=== PATIENT | male | born 1930 | race Caucasian/White ===

== ENCOUNTER 2016-09-13 10:12 | Inpatient (IN) | payer OTHER, BC ==
[~2016-09-13] VITALS: Ht 170.2 cm; Wt 111.3 kg
[2016-09-13 10:56] LABS: EOSINOPHIL (%) 0.9 % (0-5); EOSINOPHIL COUNT 0.1 K/uL (0-0.3); HEMATOCRIT 25.8 % (38.0-50.0); IMMATURE GRANULOCYTE (%) 1.9 % (0.0-0.7); IMMATURE GRANULOCYTE COUNT 2.2 K/uL; LYMPHOCYTE COUNT 0.9 K/uL (1.0-2.8); MCH 32.2 PG (29.0-34.0); MCHC 32.9 G/DL (30.0-36.0); MCV 97.7 FL (86-99); MEAN PLAT.VOLUME 11.4 uM^3 (9.0-12.4); MONOCYTE (%) 4.2 % (3-12); MONOCYTE COUNT 0.5 K/uL (0-0.8); NEUTROPHIL (%) 85.6 % (45-76); NEUTROPHIL COUNT 10.1 K/uL (1.8-6.4); PLATELET COUNT 113 K/uL (156-360); RBC DIS.WIDTH-CV 15.1 % (11.8-14.6); RBC DIS.WIDTH-SD 50.6 % (39-53); RED BLOOD COUNT 2.64 M/uL (4.00-5.50); WHITE BLOOD COUNT 11.8 K/uL (4.1-10.2)
[2016-09-13 11:07] LABS: AMYLASE 50 IU/L (1-118); CHLORIDE 108 mEq/L (99-109); POTASSIUM 3.9 mEq/L (3.7-5.4); SODIUM 139 mEq/L (136-147)
[2016-09-13 11:08] LABS: GLUCOSE 178 mg/dL (70-99)
[2016-09-13 11:10] LABS: ANION GAP 13 MEQ/L (2-14)
[2016-09-13 11:12] LABS: SERUM ETHYL ALCOHOL < 10 mg/dL
[2016-09-13 11:13] LABS: UREA NITROGEN (BUN) 25 mg/dL (9-23)
[2016-09-13 11:15] LABS: LIPASE 17 U/L (1.0-51.0)
[2016-09-13 11:17] LABS: GFR ESTIMATE (CALCULATED) 41 mL/min/
[2016-09-13] MEDS ORDERED: AMLODIPINE BESY10 MG PO (14:50)
[2016-09-13] MEDS ORDERED: LIPITOR20 MG PO (14:50)
[2016-09-13] MEDS ORDERED: COREG25 M1 PO (14:51)
[2016-09-13] MEDS ORDERED: GLUCOTROL5 MG PO (14:52)
[2016-09-13] MEDS ORDERED: LASIX40 MG PO (14:52)
[2016-09-13] MEDS ORDERED: ZESTRIL20 MG PO (14:54)
[2016-09-13] MEDS ORDERED: APRESOLINE50 MG PO (14:54)
[2016-09-13] MEDS ORDERED: ASPIRIN81 M2 PO (14:55)
[2016-09-13] MEDS ORDERED: KLOR-CON 1010 ME1 PO (14:55)
[2016-09-13] MEDS ORDERED: FEOSOL325 MG PO (14:56)
[2016-09-13] MEDS ORDERED: INDOMETHACIN50 MG PO (14:57)
[2016-09-13] MEDS ORDERED: VITAMIN D2000 UNIT PO (14:57)
[2016-09-13] MEDS ORDERED: NIACIN500 M4 PO (15:02)
[2016-09-13] MEDS ORDERED: BACTRIM,SEPT1 TABLET PO (15:03)
[2016-09-13 16:01] LABS: ADD MIUA? YES; BILIRUBIN NEGATIVE; BLOOD MODERATE; COLOR YELLOW ((YELLOW)); GLUCOSE (STRIP) NEGATIVE; KETONES NEGATIVE; LEUKOCYTES NEGATIVE; NITRITE NEGATIVE; PH, URINE 5.5 (5-8); PROTEIN (STRIP) 30; SPECIFIC GRAVITY 1.045 (1.000-1.030); UROBILINOGEN 0.2 MG/DL (0.2-1.0)
[2016-09-13 16:05] VITALS: BP 100/38
[2016-09-13 16:12] LABS: ADD MEDTOX COMMENT Y; AMPHETAMINE NEGATIVE (500 ng/mL); BARBITURATES NEGATIVE (200 ng/mL); BENZODIAZEPINES PRESUMPTIVE POSITIVE (150 ng/mL); COCAINE NEGATIVE (150 ng/mL); INTERNAL CONTROLS VALID? YES; METHADONE NEGATIVE (200 ng/mL); METHAMPHETAMINE NEGATIVE (500 ng/mL); OPIATES (MORPHINE) NEGATIVE (100 ng/mL); OXYCODONE NEGATIVE (100 ng/mL); PHENCYCLIDINE NEGATIVE (25 ng/mL); PROPOXYPHENE NEGATIVE (300 ng/mL); THC CANNABINOIDS NEGATIVE (50 ng/mL); TRICYCLIC ANTIDEPRESSANTS NEGATIVE (300 ng/mL)
[2016-09-13 16:30] VITALS: BP 100/38
[2016-09-13 16:40] LABS: CASTS PRESENT /LPF; HYALINE CASTS 0-5 /LPF; WHITE BLOOD CELLS 0-5 /HPF (0-5)
[2016-09-13 16:41] LABS: BACTERIA 1+; CRYSTALS NONE SEEN; EPITHELIAL CELLS RARE; MUCUS 1+; UCUL ADDED? NO
[2016-09-13 16:43] LABS: BENZODIAZEPINES QUANT VALUE 0 NG/ML
[2016-09-13 16:44] LABS: BENZODIAZEPINES, URINE SCREEN Negative (200 ng/mL)
[2016-09-13 16:56] LABS: Estimated Average Glucose 146 mg/dL (70-123); HEMOGLOBIN A1c (GLYCOHEMOGLOB) 6.7 % HGB (Below 5.7)
[2016-09-13 17:00] VITALS: BP 96/37
[2016-09-13 18:21] LABS: METH RESISTANT S AUREUS PCR POSITIVE (NEGATIVE)
[2016-09-13 18:27] LABS: PROBE CHECK PASS
[2016-09-13 21:56] LABS: HEMATOCRIT 24.5 % (38.0-50.0); MCV 93.5 FL (86-99)
[2016-09-13 22:35] VITALS: BP 102/39
[2016-09-13 23:00] VITALS: BP 83/42
[2016-09-13 23:30] VITALS: BP 85/30
[2016-09-14] VITALS (40 sets, daily range): BP systolic 0–146; BP diastolic 0–61
[2016-09-14 06:03] LABS: ALKALINE PHOSPHATASE 42 IU/L (3-129); ANION GAP 6 MEQ/L (2-14); CHLORIDE 112 MEQ/L (99-109); GLUCOSE 150 mg/dL (70-99); MAGNESIUM 1.9 mg/dl (1.3-2.7); SAMPLE HEMOLYSIS CHECK 0; SAMPLE ICTERIC CHECK 0; SAMPLE LIPEMIA CHECK 0; SODIUM 140 MEQ/L (136-147); TOTAL BILIRUBIN 0.8 MG/DL (0.0-1.0)
[2016-09-14 06:07] LABS: GFR ESTIMATE (CALCULATED) 29 mL/min/; POTASSIUM 4.7 MEQ/L (3.7-5.4); UREA NITROGEN (BUN) 39 mg/dL (9-23)
[2016-09-14 06:24] LABS: HEMATOCRIT 17.6 % (38.0-50.0); MCH 31.1 PG (29.0-34.0); MCHC 34.1 G/DL (30.0-36.0); MCV 91.5 FL (86-99); MEAN PLAT.VOLUME 11.6 uM^3 (9.0-12.4); RBC DIS.WIDTH-CV 17.6 % (11.8-14.6); RBC DIS.WIDTH-SD 58.1 % (39-53); WHITE BLOOD COUNT 11.1 K/uL (4.1-10.2)
[2016-09-14 06:25] LABS: PLATELET COUNT 61 K/uL (156-360); RED BLOOD COUNT 1.93 M/uL (4.00-5.50)
[2016-09-14 11:51] LABS: POINT-OF-CARE METER ID UU14174217; POINT-OF-CARE USER ID 606021424
[2016-09-14 15:08] LABS: POINT-OF-CARE METER ID UU14174217
[2016-09-14 16:09] LABS: MCH 30.5 PG (29.0-34.0); MCHC 34.4 G/DL (30.0-36.0); MCV 88.7 FL (86-99); MEAN PLAT.VOLUME 11.7 uM^3 (9.0-12.4); PLATELET COUNT 54 K/uL (156-360); RBC DIS.WIDTH-CV 16.9 % (11.8-14.6); RBC DIS.WIDTH-SD 54.8 % (39-53); RED BLOOD COUNT 2.82 M/uL (4.00-5.50); WHITE BLOOD COUNT 13.3 K/uL (4.1-10.2)
[2016-09-14 16:36] LABS: ANISOCYTOSIS 1+; EOSINOPHIL (%) 0.3 % (0-5); IMMATURE GRANULOCYTE (%) 0.4 % (0.0-0.7); IMMATURE GRANULOCYTE COUNT 0.1 K/uL; LYMPHOCYTE COUNT 1.3 K/uL (1.0-2.8); MICROCYTOSIS 1+; MONOCYTE (%) 8.1 % (3-12); MONOCYTE COUNT 1.1 K/uL (0-0.8); NEUTROPHIL COUNT 10.8 K/uL (1.8-6.4); USER ID VLB
[2016-09-14 21:54] LABS: POINT-OF-CARE METER ID UU14174217; POINT-OF-CARE USER ID RADDRS44
[2016-09-15] VITALS (16 sets, daily range): BP systolic 104–156; BP diastolic 48–94
[2016-09-15 06:29] LABS: HEMATOCRIT 22.2 % (38.0-50.0); MCH 30.4 PG (29.0-34.0); MCHC 34.7 G/DL (30.0-36.0); MCV 87.7 FL (86-99); MEAN PLAT.VOLUME 11.5 uM^3 (9.0-12.4); PLATELET COUNT 51 K/uL (156-360); RBC DIS.WIDTH-CV 17.6 % (11.8-14.6); RBC DIS.WIDTH-SD 55.5 % (39-53); RED BLOOD COUNT 2.53 M/uL (4.00-5.50); WHITE BLOOD COUNT 11.6 K/uL (4.1-10.2)
[2016-09-15 07:07] LABS: ANION GAP 6 MEQ/L (2-14); CHLORIDE 109 MEQ/L (99-109); GLUCOSE 169 mg/dL (70-99); MAGNESIUM 1.9 mg/dl (1.3-2.7); POTASSIUM 3.9 MEQ/L (3.7-5.4); SAMPLE HEMOLYSIS CHECK 0; SAMPLE ICTERIC CHECK 0; SAMPLE LIPEMIA CHECK 0; SODIUM 137 MEQ/L (136-147); UREA NITROGEN (BUN) 33 mg/dL (9-23)
[2016-09-15 07:09] LABS: GFR ESTIMATE (CALCULATED) 44 mL/min/; VANCOMYCIN, TROUGH 10.1 MCG/ML (10-20)
[2016-09-15 11:45] LABS: POINT-OF-CARE METER ID UU14174217
[2016-09-15 15:11] LABS: HEMATOCRIT 22.6 % (38.0-50.0); MCV 87.9 FL (86-99)
[2016-09-15 23:34] LABS: POINT-OF-CARE USER ID RADDRS44
[2016-09-16] VITALS (17 sets, daily range): BP systolic 115–154; BP diastolic 47–69
[2016-09-16 06:08] LABS: HEMATOCRIT 19.9 % (38.0-50.0); MCH 30.8 PG (29.0-34.0); MCHC 35.2 G/DL (30.0-36.0); MCV 87.7 FL (86-99); RBC DIS.WIDTH-CV 16.6 % (11.8-14.6); RBC DIS.WIDTH-SD 53.3 % (39-53); RED BLOOD COUNT 2.27 M/uL (4.00-5.50); WHITE BLOOD COUNT 8.3 K/uL (4.1-10.2)
[2016-09-16 06:29] LABS: ANION GAP 6 MEQ/L (2-14); CHLORIDE 105 MEQ/L (99-109); GFR ESTIMATE (CALCULATED) > 59 mL/min/; GLUCOSE 162 mg/dL (70-99); POTASSIUM 3.2 MEQ/L (3.7-5.4); SAMPLE HEMOLYSIS CHECK 0; SAMPLE ICTERIC CHECK 0; SAMPLE LIPEMIA CHECK 0; SODIUM 136 MEQ/L (136-147); UREA NITROGEN (BUN) 21 mg/dL (9-23)
[2016-09-16 07:29] LABS: HEMATOLOGY COMMENT 1 REV
[2016-09-16 07:32] LABS: MEAN PLAT.VOLUME 12.2 uM^3 (9.0-12.4); PLATELET COUNT 53 K/uL (156-360)
[2016-09-16 21:56] LABS: POINT-OF-CARE METER ID UU13113731
[2016-09-17] VITALS (14 sets, daily range): BP systolic 112–164; BP diastolic 51–75
[2016-09-17 06:19] LABS: HEMATOCRIT 24.2 % (38.0-50.0); MCH 30.2 PG (29.0-34.0); MCHC 34.3 G/DL (30.0-36.0); MEAN PLAT.VOLUME 11.6 uM^3 (9.0-12.4); PLATELET COUNT 59 K/uL (156-360); RBC DIS.WIDTH-CV 15.9 % (11.8-14.6); RBC DIS.WIDTH-SD 50.5 % (39-53); WHITE BLOOD COUNT 7.2 K/uL (4.1-10.2)
[2016-09-17 06:20] LABS: RED BLOOD COUNT 2.75 M/uL (4.00-5.50)
[2016-09-17 07:10] LABS: ANION GAP 8 MEQ/L (2-14); CHLORIDE 104 MEQ/L (99-109); GFR ESTIMATE (CALCULATED) > 59 mL/min/; GLUCOSE 137 mg/dL (70-99); POTASSIUM 3.4 MEQ/L (3.7-5.4); SAMPLE HEMOLYSIS CHECK 0; SAMPLE ICTERIC CHECK 0; SAMPLE LIPEMIA CHECK 0; SODIUM 136 MEQ/L (136-147); UREA NITROGEN (BUN) 21 mg/dL (9-23)
[2016-09-17 14:22] LABS: Heparin Induced Plt Ab Negative (Negative)
[2016-09-17 15:50] LABS: UFH SRA Result Negative (Negative)
[2016-09-18] VITALS (7 sets, daily range): BP systolic 132–161; BP diastolic 55–69
[2016-09-18 05:10] LABS: HEMATOCRIT 24.2 % (38.0-50.0); MCH 30.4 PG (29.0-34.0); MCHC 33.9 G/DL (30.0-36.0); MCV 89.6 FL (86-99); MEAN PLAT.VOLUME 12.2 uM^3 (9.0-12.4); PLATELET COUNT 69 K/uL (156-360); RBC DIS.WIDTH-CV 15.8 % (11.8-14.6); RBC DIS.WIDTH-SD 50.6 % (39-53); WHITE BLOOD COUNT 5.5 K/uL (4.1-10.2)
[2016-09-18 05:35] LABS: ANION GAP 8 MEQ/L (2-14); CHLORIDE 103 MEQ/L (99-109); GFR ESTIMATE (CALCULATED) > 59 mL/min/; GLUCOSE 172 mg/dL (70-99); POTASSIUM 3.8 MEQ/L (3.7-5.4); SAMPLE HEMOLYSIS CHECK 0; SAMPLE ICTERIC CHECK 0; SAMPLE LIPEMIA CHECK 0; SODIUM 137 MEQ/L (136-147); UREA NITROGEN (BUN) 26 mg/dL (9-23)
[2016-09-18 08:25] LABS: ALKALINE PHOSPHATASE 55 IU/L (3-129); DIRECT BILIRUBIN 0.2 mg/dL (0.0-0.3); MAGNESIUM 1.9 mg/dl (1.3-2.7)
[2016-09-18] MEDS ORDERED: FONDAPARIN2.5 MG/0.5 SC (10:36)
[2016-09-18] MEDS ORDERED: PRAVASTATIN SOD80 MG PO (10:37)
[2016-09-18] MEDS ORDERED: K-DUR10 MEQ PO (10:37)
[2016-09-18] MEDS ORDERED: JANUVIA25 M1 PO (10:38)
[2016-09-18] MEDS ORDERED: LIDOCAINE700 MG TD (10:38)
[2016-09-18] MEDS ORDERED: NOVOLOG PE100 UNITS/ SC (10:38)
[2016-09-18] MEDS ORDERED: THERAGRAN1 TABLET PO (10:38)
[2016-09-18] MEDS ORDERED: BISAC-EVAC10 MG PR (10:39)
[2016-09-18] MEDS ORDERED: MILK OF MAGNESI10 ML PO (10:39)
[2016-09-18] MEDS ORDERED: FAMOTIDINE20 MG PO (10:39)
[2016-09-18] MEDS ORDERED: SENNA LAX8.6 MG PO (10:39)
[2016-09-18] MEDS ORDERED: DOCUSATE SODIU100 MG PO (10:39)
[2016-09-18 11:45] LABS: POINT-OF-CARE METER ID UU14174217
[2016-09-18 12:36] LABS: POINT-OF-CARE METER ID UU14174215
[2016-09-18] MEDS ORDERED: ATORVASTATIN CA20 MG PO (13:19)
[2016-09-18] MEDS ORDERED: GLUCOTROL XL2.5 MG PO (13:32)
[2016-09-18] MEDS ORDERED: XALATAN2.5 ML BOTH EYES (13:33)
[2016-09-18] MEDS ORDERED: BACTRIM,SEPT1 TABLET PO (13:36)
[2016-09-18] MEDS ORDERED: NORCO 5/3251 TABLET PO (13:37)
== END 2016-09-18 12:05 | DRG 956 ==
LOC: TRA 10:12 → EDOF 13:48 → 4WEST 13:48 → EDOF 14:24 → 4WEST 16:10
PROVIDERS: Anesthesiology; Emergency Medicine; Hospitalist; Internal Medicine; Internal Medicine Critical Care Medicine; Surgery
PROC: 0SCC0ZZ Extirpation of Matter from Right Knee Joint, Open Approach (ICD-10-PCS; principal; 2016-09-13)
PROC: 0QS636Z Reposition Right Upper Femur with Intramedullary Internal Fixation Device, Percutaneous Approach (ICD-10-PCS; 2016-09-13)
PROC: 0SBC0ZZ Excision of Right Knee Joint, Open Approach (ICD-10-PCS; 2016-09-13)
PROC: 30233N1 Transfusion of Nonautologous Red Blood Cells into Peripheral Vein, Percutaneous Approach (ICD-10-PCS; 2016-09-13)
PROC: 0HQ1XZZ Repair Face Skin, External Approach (ICD-10-PCS; 2016-09-13)
DX: S72.141A Displaced intertrochanteric fracture of right femur, initial encounter for closed fracture (principal); S22.42XA Multiple fractures of ribs, left side, initial encounter for closed fracture; S22.31XA Fracture of one rib, right side, initial encounter for closed fracture; S32.028A Other fracture of second lumbar vertebra, initial encounter for closed fracture; S32.018A Other fracture of first lumbar vertebra, initial encounter for closed fracture; S32.038A Other fracture of third lumbar vertebra, initial encounter for closed fracture; S82.001B Unspecified fracture of right patella, initial encounter for open fracture type I or II; D62 Acute posthemorrhagic anemia; N17.9 Acute kidney failure, unspecified; L03.90 Cellulitis, unspecified; C85.94 Non-Hodgkin lymphoma, unspecified, lymph nodes of axilla and upper limb; S06.9X1A Unspecified intracranial injury with loss of consciousness of 30 minutes or less, initial encounter; S42.142A Displaced fracture of glenoid cavity of scapula, left shoulder, initial encounter for closed fracture; S02.2XXA Fracture of nasal bones, initial encounter for closed fracture; S01.21XA Laceration without foreign body of nose, initial encounter; S71.111A Laceration without foreign body, right thigh, initial encounter; I95.9 Hypotension, unspecified; I10 Essential (primary) hypertension; I25.10 Atherosclerotic heart disease of native coronary artery without angina pectoris; E11.9 Type 2 diabetes mellitus without complications; E78.5 Hyperlipidemia, unspecified; D69.6 Thrombocytopenia, unspecified; E55.9 Vitamin D deficiency, unspecified; V68.5XXA Driver of heavy transport vehicle injured in noncollision transport accident in traffic accident, initial encounter; Z85.828 Personal history of other malignant neoplasm of skin; Z88.5 Allergy status to narcotic agent; I25.2 Old myocardial infarction; Z79.82 Long term (current) use of aspirin
CPT/HCPCS: 70450; 71010; 71260; 72125; 72129; 72132; 73502; 73552; 74177; 76000; 80048; 80053; 80076; 80202; 81003; 82150; 82272; 82306; 82948; 83036; 83690; 83735; 84100; 84999; 85014; 85018; 85025; 85027; 86022 90; 86850; 86900; 86901; 86920; 87641; 90832; 93005; 94010; 94667; 94668; 94799; 97530 GO; 97530 GP; 99281; 99285; C1713; G0480; J0131; J0690; J1170; J1650; J1652; J1815; J1940; J2270; J2405; J3010; J3370; J7030; J7050; J7120; P9016; S0028

== ENCOUNTER 2016-09-18 12:19 | Inpatient (IN) | payer OTHER, BC ==
[~2016-09-18] VITALS: Ht 175.3 cm; Wt 109.8 kg
[~2016-09-18 12:19] MED LIST: AMLODIPINE BESY10 MG PO; APRESOLINE50 MG PO; ASPIRIN81 M2 PO; BACTRIM,SEPT1 TABLET PO; BISAC-EVAC10 MG PR; COREG25 M1 PO; DOCUSATE SODIU100 MG PO; FAMOTIDINE20 MG PO; FEOSOL325 MG PO; FONDAPARIN2.5 MG/0.5 SC; GLUCOTROL5 MG PO; INDOMETHACIN50 MG PO; JANUVIA25 M1 PO; K-DUR10 MEQ PO; KLOR-CON 1010 ME1 PO; LASIX40 MG PO; LIDOCAINE700 MG TD; LIPITOR20 MG PO; MILK OF MAGNESI10 ML PO; NIACIN500 M4 PO; NOVOLOG PE100 UNITS/ SC; PRAVASTATIN SOD80 MG PO; SENNA LAX8.6 MG PO; THERAGRAN1 TABLET PO; VITAMIN D2000 UNIT PO; ZESTRIL20 MG PO
[2016-09-18 12:20] VITALS: BP 172/86
[2016-09-18] MEDS ORDERED: ATORVASTATIN CA20 MG PO (13:19)
[2016-09-18] MEDS ORDERED: GLUCOTROL XL2.5 MG PO (13:32)
[2016-09-18] MEDS ORDERED: XALATAN2.5 ML BOTH EYES (13:33)
[2016-09-18] MEDS ORDERED: BACTRIM,SEPT1 TABLET PO (13:36)
[2016-09-18] MEDS ORDERED: NORCO 5/3251 TABLET PO (13:37)
[2016-09-18 15:17] VITALS: BP 150/72
[2016-09-18 15:20] VITALS: BP 150/72
[2016-09-18 16:21] LABS: POINT-OF-CARE METER ID UU14174215
[2016-09-18 21:19] LABS: POINT-OF-CARE METER ID UU14174215
[2016-09-19 00:09] VITALS: BP 162/74
[2016-09-19 05:31] LABS: HEMATOCRIT 25.6 % (38.0-50.0); MCH 30.5 PG (29.0-34.0); MCHC 33.2 G/DL (30.0-36.0); MCV 91.8 FL (86-99); MEAN PLAT.VOLUME 12.1 uM^3 (9.0-12.4); PLATELET COUNT 81 K/uL (156-360); RBC DIS.WIDTH-CV 16.1 % (11.8-14.6); RBC DIS.WIDTH-SD 52.7 % (39-53); RED BLOOD COUNT 2.79 M/uL (4.00-5.50); WHITE BLOOD COUNT 5.7 K/uL (4.1-10.2)
[2016-09-19 05:42] VITALS: BP 160/78
[2016-09-19 06:39] LABS: ALKALINE PHOSPHATASE 55 IU/L (3-129); ANION GAP 4 MEQ/L (2-14); CHLORIDE 104 MEQ/L (99-109); GFR ESTIMATE (CALCULATED) > 59 mL/min/; GLUCOSE 165 mg/dL (70-99); SAMPLE HEMOLYSIS CHECK 0; SAMPLE ICTERIC CHECK 0; SAMPLE LIPEMIA CHECK 0; SODIUM 137 MEQ/L (136-147); TOTAL BILIRUBIN 1.1 MG/DL (0.0-1.0); UREA NITROGEN (BUN) 24 mg/dL (9-23)
[2016-09-19 07:15] LABS: POINT-OF-CARE METER ID UU13113720
[2016-09-19 16:18] VITALS: BP 135/60
[2016-09-19 17:11] LABS: POINT-OF-CARE METER ID UU14174215
[2016-09-19 21:07] LABS: POINT-OF-CARE METER ID UU14174215
[2016-09-20] VITALS: BP 140/68
[2016-09-20 05:22] VITALS: BP 131/68
[2016-09-20 07:18] LABS: POINT-OF-CARE METER ID UU13113720; POINT-OF-CARE USER ID ENVGAF
[2016-09-20 11:16] LABS: POINT-OF-CARE METER ID UU14174215; POINT-OF-CARE USER ID AHSSSJB31
[2016-09-20 16:00] VITALS: BP 153/67
[2016-09-20 16:30] LABS: POINT-OF-CARE METER ID UU14174215
[2016-09-20 16:44] LABS: POINT-OF-CARE METER ID UU13113720
[2016-09-20 21:57] LABS: POINT-OF-CARE METER ID UU14174215
[2016-09-21 05:47] VITALS: BP 162/75
[2016-09-21 07:28] LABS: POINT-OF-CARE METER ID UU14174215; POINT-OF-CARE USER ID AHSSSJB31
[2016-09-21 12:17] LABS: POINT-OF-CARE METER ID UU14174215
[2016-09-21 15:59] VITALS: BP 156/80
[2016-09-21 16:50] LABS: POINT-OF-CARE METER ID UU14174215
[2016-09-21 21:03] LABS: POINT-OF-CARE METER ID UU14174215
[2016-09-22 05:40] VITALS: BP 137/63
[2016-09-22 07:45] LABS: POINT-OF-CARE METER ID UU14174215
[2016-09-22] MEDS ORDERED: JANUVIA25 M1 PO (10:32)
[2016-09-22 11:48] LABS: POINT-OF-CARE METER ID UU14174215
[2016-09-22 11:59] LABS: HEMATOCRIT 26.5 % (38.0-50.0); MCH 30.6 PG (29.0-34.0); MCHC 32.8 G/DL (30.0-36.0); MCV 93.3 FL (86-99); RBC DIS.WIDTH-CV 15.8 % (11.8-14.6); RBC DIS.WIDTH-SD 52.7 % (39-53); RED BLOOD COUNT 2.84 M/uL (4.00-5.50); WHITE BLOOD COUNT 6.9 K/uL (4.1-10.2)
[2016-09-22 12:17] LABS: MEAN PLAT.VOLUME 11.6 uM^3 (9.0-12.4); PLATELET COUNT 154 K/uL (156-360)
[2016-09-22 13:46] LABS: ANION GAP 5 MEQ/L (2-14); CHLORIDE 100 MEQ/L (99-109); GFR ESTIMATE (CALCULATED) > 59 mL/min/; GLUCOSE 183 mg/dL (70-99); POTASSIUM 4.1 MEQ/L (3.7-5.4); SAMPLE HEMOLYSIS CHECK 0; SAMPLE ICTERIC CHECK 0; SAMPLE LIPEMIA CHECK 0; SODIUM 135 MEQ/L (136-147); UREA NITROGEN (BUN) 26 mg/dL (9-23)
[2016-09-22 16:30] VITALS: BP 136/63
[2016-09-22 16:39] LABS: POINT-OF-CARE METER ID UU13113720
[2016-09-22 21:20] LABS: POINT-OF-CARE METER ID UU14174215
[2016-09-23 05:42] VITALS: BP 140/72
[2016-09-23 08:35] LABS: POINT-OF-CARE METER ID UU14174215; POINT-OF-CARE USER ID AHSSSJB31
[2016-09-23 11:38] LABS: POINT-OF-CARE METER ID UU14174215; POINT-OF-CARE USER ID AHSSSJB31
[2016-09-23 15:32] VITALS: BP 132/58
[2016-09-23 16:42] LABS: POINT-OF-CARE METER ID UU13113720
[2016-09-23 21:22] LABS: POINT-OF-CARE METER ID UU13113720; POINT-OF-CARE USER ID 610211320
[2016-09-24 05:25] VITALS: BP 145/66
[2016-09-24 06:52] LABS: POINT-OF-CARE METER ID UU14174215
[2016-09-24 11:49] LABS: POINT-OF-CARE METER ID UU14174215
[2016-09-24 15:26] VITALS: BP 138/58
[2016-09-24 16:22] LABS: POINT-OF-CARE METER ID UU14174215
[2016-09-24 21:04] LABS: POINT-OF-CARE METER ID UU13113720
[2016-09-25 05:48] VITALS: BP 154/75
[2016-09-25 07:13] LABS: POINT-OF-CARE METER ID UU14174215; POINT-OF-CARE USER ID AHSSSJB31
[2016-09-25 11:47] LABS: POINT-OF-CARE METER ID UU14174215; POINT-OF-CARE USER ID AHSSSJB31
[2016-09-25 15:06] VITALS: BP 152/69
[2016-09-25 16:30] LABS: POINT-OF-CARE METER ID UU14174215
[2016-09-25 21:52] LABS: POINT-OF-CARE METER ID UU13113720
[2016-09-26 05:10] VITALS: BP 138/56
[2016-09-26 07:34] LABS: POINT-OF-CARE METER ID UU14174215; POINT-OF-CARE USER ID AHSSSJB31
[2016-09-26 11:49] LABS: POINT-OF-CARE METER ID UU14174215; POINT-OF-CARE USER ID AHSSSJB31
[2016-09-26 16:00] VITALS: BP 152/68
[2016-09-26 16:23] LABS: POINT-OF-CARE METER ID UU13113720
[2016-09-26 21:22] LABS: POINT-OF-CARE METER ID UU14174215
[2016-09-27 05:40] VITALS: BP 144/65
[2016-09-27 08:32] LABS: POINT-OF-CARE METER ID UU13113720
[2016-09-27 12:32] LABS: POINT-OF-CARE METER ID UU13113720; POINT-OF-CARE USER ID AHSSSJB31
[2016-09-27 15:14] VITALS: BP 146/67
[2016-09-27 16:31] LABS: POINT-OF-CARE METER ID UU13113720
[2016-09-27 21:17] LABS: POINT-OF-CARE METER ID UU14174215
[2016-09-28 05:45] VITALS: BP 140/62
[2016-09-28 06:53] LABS: POINT-OF-CARE METER ID UU14174215
[2016-09-28 11:42] LABS: POINT-OF-CARE METER ID UU13113720; POINT-OF-CARE USER ID ENVGAF
[2016-09-28 16:42] VITALS: BP 158/69
[2016-09-28 17:04] LABS: POINT-OF-CARE METER ID UU14174215
[2016-09-28 21:30] LABS: POINT-OF-CARE METER ID UU13113720
[2016-09-29 05:50] VITALS: BP 149/74
[2016-09-29 07:20] LABS: POINT-OF-CARE METER ID UU14174215; POINT-OF-CARE USER ID ENVGAF
[2016-09-29 11:21] LABS: POINT-OF-CARE METER ID UU14174215; POINT-OF-CARE USER ID ENVGAF
[2016-09-29 15:31] VITALS: BP 102/58; BP 148/66
[2016-09-29 16:30] LABS: POINT-OF-CARE METER ID UU13113720
[2016-09-29 20:48] LABS: POINT-OF-CARE METER ID UU13113720
[2016-09-30 05:35] VITALS: BP 164/72
[2016-09-30 08:12] LABS: POINT-OF-CARE METER ID UU14174215
[2016-09-30 11:59] LABS: POINT-OF-CARE METER ID UU14174215
[2016-09-30 15:45] VITALS: BP 130/62
[2016-09-30 16:26] LABS: POINT-OF-CARE METER ID UU14174215
[2016-09-30 21:22] LABS: POINT-OF-CARE METER ID UU13113720; POINT-OF-CARE USER ID 610211320
[2016-10-01 05:19] VITALS: BP 148/82
[2016-10-01 07:17] LABS: POINT-OF-CARE METER ID UU14174215; POINT-OF-CARE USER ID AHSSSJB31
[2016-10-01 09:08] VITALS: BP 123/57
[2016-10-01 11:55] LABS: POINT-OF-CARE METER ID UU13113720; POINT-OF-CARE USER ID AHSSSJB31
[2016-10-01 15:26] VITALS: BP 172/83
[2016-10-01 16:15] LABS: POINT-OF-CARE METER ID UU14174215
[2016-10-01 16:57] VITALS: BP 188/68
[2016-10-01 19:59] VITALS: BP 168/72
[2016-10-01 21:27] LABS: POINT-OF-CARE METER ID UU13113720
[2016-10-02 05:45] VITALS: BP 173/77
[2016-10-02 07:47] LABS: POINT-OF-CARE METER ID UU13113720; POINT-OF-CARE USER ID AHSSSJB31
[2016-10-02 09:32] VITALS: BP 164/78
[2016-10-02 11:29] LABS: POINT-OF-CARE METER ID UU13113720; POINT-OF-CARE USER ID AHSSSJB31
[2016-10-02 15:20] VITALS: BP 168/70
[2016-10-02 16:17] LABS: POINT-OF-CARE METER ID UU13113720
[2016-10-02 20:33] LABS: POINT-OF-CARE METER ID UU14174215
[2016-10-03 05:04] VITALS: BP 153/72
[2016-10-03 07:01] LABS: POINT-OF-CARE METER ID UU14174215; POINT-OF-CARE USER ID ENVGAF
[2016-10-03 11:55] LABS: POINT-OF-CARE METER ID UU14174215; POINT-OF-CARE USER ID ENVGAF
[2016-10-03 15:24] VITALS: BP 150/68
[2016-10-03 16:08] LABS: POINT-OF-CARE METER ID UU14174215
[2016-10-03 21:33] LABS: POINT-OF-CARE METER ID UU14174215
[2016-10-04 04:28] VITALS: BP 138/62
[2016-10-04 07:03] LABS: POINT-OF-CARE METER ID UU13113720; POINT-OF-CARE USER ID ENVGAF
[2016-10-04 11:15] LABS: POINT-OF-CARE METER ID UU13113720; POINT-OF-CARE USER ID ENVGAF
[2016-10-04 16:00] VITALS: BP 153/73
[2016-10-04 16:46] LABS: POINT-OF-CARE METER ID UU14174215
[2016-10-04 21:28] LABS: POINT-OF-CARE METER ID UU14174215
[2016-10-05 05:53] VITALS: BP 144/64
[2016-10-05 07:38] LABS: POINT-OF-CARE METER ID UU13113720
[2016-10-05 11:35] LABS: POINT-OF-CARE METER ID UU13113720; POINT-OF-CARE USER ID AHSSSJB31
[2016-10-05 15:30] VITALS: BP 159/71
[2016-10-05 16:18] LABS: POINT-OF-CARE METER ID UU13113720
[2016-10-05 20:43] LABS: POINT-OF-CARE METER ID UU13113720
[2016-10-06 04:59] LABS: HEMATOCRIT 26.3 % (38.0-50.0); MCH 30.7 PG (29.0-34.0); MCHC 31.9 G/DL (30.0-36.0); MEAN PLAT.VOLUME 10.3 uM^3 (9.0-12.4); PLATELET COUNT 198 K/uL (156-360); RBC DIS.WIDTH-CV 16.8 % (11.8-14.6); RBC DIS.WIDTH-SD 56.1 % (39-53); RED BLOOD COUNT 2.74 M/uL (4.00-5.50); WHITE BLOOD COUNT 3.8 K/uL (4.1-10.2)
[2016-10-06 05:08] LABS: CHLORIDE 103 mEq/L (99-109); POTASSIUM 3.7 mEq/L (3.7-5.4); SODIUM 138 mEq/L (136-147)
[2016-10-06 05:10] LABS: GLUCOSE 131 mg/dL (70-99)
[2016-10-06 05:11] LABS: ANION GAP 6 MEQ/L (2-14)
[2016-10-06 05:13] LABS: ALKALINE PHOSPHATASE 176 IU/L (3-129)
[2016-10-06 05:14] LABS: GFR ESTIMATE (CALCULATED) > 59 mL/min/
[2016-10-06 05:15] LABS: UREA NITROGEN (BUN) 18 mg/dL (9-23)
[2016-10-06 05:28] VITALS: BP 124/58
[2016-10-06 07:31] LABS: POINT-OF-CARE METER ID UU14174215
[2016-10-06 11:37] LABS: POINT-OF-CARE METER ID UU14174215
[2016-10-06 15:30] VITALS: BP 182/73
[2016-10-06 16:32] LABS: POINT-OF-CARE METER ID UU14174215
[2016-10-06 21:59] LABS: POINT-OF-CARE METER ID UU14174215
[2016-10-07 05:44] VITALS: BP 132/64
[2016-10-07 07:32] LABS: POINT-OF-CARE METER ID UU13113720
[2016-10-07 12:33] LABS: POINT-OF-CARE METER ID UU13113720
[2016-10-07 15:45] VITALS: BP 198/70
[2016-10-07 16:58] LABS: POINT-OF-CARE METER ID UU14174215
[2016-10-07 17:00] VITALS: BP 160/80
[2016-10-07 21:07] VITALS: BP 148/78
[2016-10-07 21:11] LABS: POINT-OF-CARE METER ID UU13113720; POINT-OF-CARE USER ID 610211320
[2016-10-08] VITALS: BP 154/74
[2016-10-08 05:17] VITALS: BP 153/80
[2016-10-08 06:50] LABS: POINT-OF-CARE METER ID UU13113720
[2016-10-08 11:37] LABS: POINT-OF-CARE METER ID UU14174215
[2016-10-08 15:14] VITALS: BP 166/74
[2016-10-08 16:24] LABS: POINT-OF-CARE METER ID UU13113720
[2016-10-08 21:20] LABS: POINT-OF-CARE METER ID UU14174215
[2016-10-09 05:41] VITALS: BP 180/83
[2016-10-09 07:18] LABS: POINT-OF-CARE METER ID UU14174215; POINT-OF-CARE USER ID AHSSSJB31
[2016-10-09 11:25] LABS: POINT-OF-CARE METER ID UU14174215; POINT-OF-CARE USER ID AHSSSJB31
[2016-10-09 13:36] VITALS: BP 162/84
[2016-10-09 15:28] VITALS: BP 160/68
[2016-10-09 16:08] LABS: POINT-OF-CARE METER ID UU14174215
[2016-10-09 22:00] LABS: POINT-OF-CARE METER ID UU14174215
[2016-10-10 04:30] VITALS: BP 186/80
[2016-10-10 07:00] VITALS: BP 160/75
[2016-10-10 07:02] LABS: POINT-OF-CARE METER ID UU13113720; POINT-OF-CARE USER ID AHSSSJB31
[2016-10-10 12:18] LABS: POINT-OF-CARE METER ID UU14174215; POINT-OF-CARE USER ID AHSSSJB31
[2016-10-10 15:53] VITALS: BP 158/68
[2016-10-10 16:31] LABS: POINT-OF-CARE METER ID UU14174215
[2016-10-10 22:55] LABS: POINT-OF-CARE METER ID UU14174215
[2016-10-11 07:39] LABS: POINT-OF-CARE METER ID UU14174215; POINT-OF-CARE USER ID AHSSSJB31
[2016-10-11 12:03] LABS: POINT-OF-CARE METER ID UU14174215; POINT-OF-CARE USER ID AHSSSJB31
[2016-10-11 16:25] VITALS: BP 167/74
[2016-10-11 17:08] LABS: POINT-OF-CARE METER ID UU13113720
[2016-10-11 21:16] LABS: POINT-OF-CARE METER ID UU14174215
[2016-10-12 06:14] VITALS: BP 136/62
[2016-10-12 07:00] LABS: POINT-OF-CARE METER ID UU13113720; POINT-OF-CARE USER ID ENVGAF
[2016-10-12 11:05] LABS: POINT-OF-CARE METER ID UU13113720; POINT-OF-CARE USER ID ENVGAF
[2016-10-12 15:41] VITALS: BP 148/68
[2016-10-12 16:18] LABS: POINT-OF-CARE METER ID UU13113720
[2016-10-12 21:22] LABS: POINT-OF-CARE METER ID UU13113720
[2016-10-13 05:50] VITALS: BP 160/78
[2016-10-13 07:02] LABS: POINT-OF-CARE METER ID UU13113720; POINT-OF-CARE USER ID ENVGAF
[2016-10-13 11:18] LABS: POINT-OF-CARE METER ID UU13113720; POINT-OF-CARE USER ID ENVGAF
[2016-10-13 12:26] LABS: MCH 31.3 PG (29.0-34.0); MCHC 32.5 G/DL (30.0-36.0); MCV 96.2 FL (86-99); MEAN PLAT.VOLUME 11.5 uM^3 (9.0-12.4); PLATELET COUNT 152 K/uL (156-360); RBC DIS.WIDTH-CV 17.4 % (11.8-14.6); RBC DIS.WIDTH-SD 60.7 % (39-53); RED BLOOD COUNT 2.91 M/uL (4.00-5.50)
[2016-10-13 12:28] LABS: WHITE BLOOD COUNT 6.6 K/uL (4.1-10.2)
[2016-10-13 12:29] LABS: ALKALINE PHOSPHATASE 152 IU/L (3-129); ANION GAP 6 MEQ/L (2-14); CHLORIDE 100 MEQ/L (99-109); GFR ESTIMATE (CALCULATED) > 59 mL/min/; GLUCOSE 217 mg/dL (70-99); POTASSIUM 3.4 MEQ/L (3.7-5.4); SAMPLE HEMOLYSIS CHECK 0; SAMPLE ICTERIC CHECK 0; SAMPLE LIPEMIA CHECK 0; SODIUM 137 MEQ/L (136-147); TOTAL BILIRUBIN 0.9 MG/DL (0.0-1.0); UREA NITROGEN (BUN) 23 mg/dL (9-23)
[2016-10-13 14:42] VITALS: BP 173/79
[2016-10-13 17:01] LABS: POINT-OF-CARE METER ID UU13113720
[2016-10-13 17:49] VITALS: BP 164/68
[2016-10-13 18:36] LABS: URIC ACID 4.6 mg/dL (3.1-9.2)
[2016-10-13 21:33] LABS: POINT-OF-CARE METER ID UU14174215
[2016-10-14 05:15] VITALS: BP 160/82
[2016-10-14 06:57] LABS: POINT-OF-CARE METER ID UU13113720
[2016-10-14 11:30] LABS: POINT-OF-CARE METER ID UU13113720
[2016-10-14 15:50] VITALS: BP 161/69
[2016-10-14 16:10] LABS: POINT-OF-CARE METER ID UU14174215
[2016-10-14 21:07] LABS: POINT-OF-CARE METER ID UU14174215; POINT-OF-CARE USER ID 610211320
[2016-10-15 05:27] VITALS: BP 162/84
[2016-10-15 07:44] LABS: POINT-OF-CARE METER ID UU14174215
[2016-10-15 11:28] LABS: POINT-OF-CARE METER ID UU14174215
[2016-10-15 15:58] VITALS: BP 152/70
[2016-10-15 16:20] LABS: POINT-OF-CARE METER ID UU14174215
[2016-10-15 21:15] LABS: POINT-OF-CARE METER ID UU14174215; POINT-OF-CARE USER ID 610211320
[2016-10-16 05:06] VITALS: BP 171/88
[2016-10-16 07:46] LABS: POINT-OF-CARE METER ID UU14174215; POINT-OF-CARE USER ID ENVGAF
[2016-10-16 11:57] LABS: POINT-OF-CARE METER ID UU14174215; POINT-OF-CARE USER ID AHSSSJB31
[2016-10-16 15:03] VITALS: BP 160/76
[2016-10-16 16:40] LABS: POINT-OF-CARE METER ID UU14174215
[2016-10-16 20:16] LABS: ALKALINE PHOSPHATASE 158 IU/L (3-129); ANION GAP 7 MEQ/L (2-14); CHLORIDE 103 MEQ/L (99-109); GFR ESTIMATE (CALCULATED) > 59 mL/min/; GLUCOSE 208 mg/dL (70-99); POTASSIUM 3.5 MEQ/L (3.7-5.4); SAMPLE HEMOLYSIS CHECK 0; SAMPLE ICTERIC CHECK 0; SAMPLE LIPEMIA CHECK 0; SODIUM 138 MEQ/L (136-147); TOTAL BILIRUBIN 0.7 MG/DL (0.0-1.0); UREA NITROGEN (BUN) 19 mg/dL (9-23)
[2016-10-16 20:56] LABS: HEMATOCRIT 27.5 % (38.0-50.0); MCH 31.8 PG (29.0-34.0); MCHC 33.1 G/DL (30.0-36.0); MCV 96.2 FL (86-99); MEAN PLAT.VOLUME 10.6 uM^3 (9.0-12.4); PLATELET COUNT 149 K/uL (156-360); RBC DIS.WIDTH-CV 17.2 % (11.8-14.6); RBC DIS.WIDTH-SD 61.1 % (39-53); RED BLOOD COUNT 2.86 M/uL (4.00-5.50); WHITE BLOOD COUNT 3.8 K/uL (4.1-10.2)
[2016-10-16 21:39] LABS: POINT-OF-CARE METER ID UU13113720
[2016-10-17 05:45] VITALS: BP 148/72
[2016-10-17 06:55] LABS: POINT-OF-CARE METER ID UU14174215; POINT-OF-CARE USER ID ENVGAF
[2016-10-17] MEDS ORDERED: NORCO 5/3251 TABLET PO (08:13)
[2016-10-17] MEDS ORDERED: NIACIN500 M4 PO (08:13)
[2016-10-17] MEDS ORDERED: FAMOTIDINE20 MG PO (08:13)
[2016-10-17] MEDS ORDERED: LIDOCAINE700 MG TD (08:13)
[2016-10-17] MEDS ORDERED: LASIX40 MG PO (08:13)
[2016-10-17] MEDS ORDERED: FEOSOL325 MG PO (08:13)
[2016-10-17] MEDS ORDERED: COREG25 M1 PO (08:13)
[2016-10-17] MEDS ORDERED: ATORVASTATIN CA20 MG PO (08:13)
[2016-10-17] MEDS ORDERED: ECOTRIN325 MG PO (08:13)
[2016-10-17] MEDS ORDERED: ZESTRIL20 MG PO (08:13)
[2016-10-17] MEDS ORDERED: Colchicine,Colcrys PO (08:13)
[2016-10-17] MEDS ORDERED: SENNA LAX8.6 MG PO (08:13)
[2016-10-17] MEDS ORDERED: K-DUR20 MEQ PO (08:13)
[2016-10-17] MEDS ORDERED: APRESOLINE50 MG PO (08:13)
[2016-10-17] MEDS ORDERED: AMLODIPINE BESY10 MG PO (08:13)
[2016-10-17] MEDS ORDERED: LISINOPRIL10 MG PO (08:13)
[2016-10-17 11:08] LABS: POINT-OF-CARE METER ID UU14174215
== END 2016-10-17 14:50 | disposition home health service (06) | DRG 560 ==
LOC: 3WEST 12:19
PROVIDERS: Physical Medicine & Rehabilitation Pain Medicine
PROC: F07M0ZZ Range of Motion and Joint Mobility Treatment of Musculoskeletal System - Whole Body (ICD-10-PCS; principal; 2016-09-18)
PROC: 0H9LXZX Drainage of Left Lower Leg Skin, External Approach, Diagnostic (ICD-10-PCS; 2016-09-27)
DX: S72.141D Displaced intertrochanteric fracture of right femur, subsequent encounter for closed fracture with routine healing (principal); S82.001E Unspecified fracture of right patella, subsequent encounter for open fracture type I or II with routine healing; V99.XXXD Unspecified transport accident, subsequent encounter; R26.2 Difficulty in walking, not elsewhere classified; J98.11 Atelectasis; D62 Acute posthemorrhagic anemia; L03.116 Cellulitis of left lower limb; L89.322 Pressure ulcer of left buttock, stage 2; N50.89 Other specified disorders of the male genital organs; D69.6 Thrombocytopenia, unspecified; E77.8 Other disorders of glycoprotein metabolism; E88.09 Other disorders of plasma-protein metabolism, not elsewhere classified; S42.102D Fracture of unspecified part of scapula, left shoulder, subsequent encounter for fracture with routine healing; S22.42XD Multiple fractures of ribs, left side, subsequent encounter for fracture with routine healing; S22.31XD Fracture of one rib, right side, subsequent encounter for fracture with routine healing; S32.019D Unspecified fracture of first lumbar vertebra, subsequent encounter for fracture with routine healing; S32.029D Unspecified fracture of second lumbar vertebra, subsequent encounter for fracture with routine healing; S32.039D Unspecified fracture of third lumbar vertebra, subsequent encounter for fracture with routine healing; S02.2XXD Fracture of nasal bones, subsequent encounter for fracture with routine healing; S00.03XD Contusion of scalp, subsequent encounter; M25.571 Pain in right ankle and joints of right foot; M10.9 Gout, unspecified; E83.51 Hypocalcemia; E87.6 Hypokalemia; D63.8 Anemia in other chronic diseases classified elsewhere; J44.9 Chronic obstructive pulmonary disease, unspecified; I10 Essential (primary) hypertension; E11.9 Type 2 diabetes mellitus without complications; M51.36 Other intervertebral disc degeneration, lumbar region; M47.816 Spondylosis without myelopathy or radiculopathy, lumbar region; D72.829 Elevated white blood cell count, unspecified; H40.9 Unspecified glaucoma; Z22.322 Carrier or suspected carrier of Methicillin resistant Staphylococcus aureus; Z85.79 Personal history of other malignant neoplasms of lymphoid, hematopoietic and related tissues
CPT/HCPCS: 71010; 72100; 73010; 73030; 73502; 73552; 73610; 73630; 80048; 80053; 82948; 84550; 85027; 87070; 87075; 87205; 97110 GO; 97530 GP; J1652; J1815